=== PATIENT | male | born 1990 | race Caucasian/White ===

== ENCOUNTER 2016-10-26 15:56 | Emergency (ER) | payer OTHER ==
--- NOTE | 2016-10-26 16:49 | EDM.PDOC ---
[id number] Complaint: Abdominal Pain Stated Complaint: abd pain Time Seen by Provider: 10/26/16 16:39 Source of Information: Reports: Patient, Family, RN Notes Reviewed History Limitations: Reports: No Limitations - History of Present Illness INITIAL COMMENTS - FREE TEXT/NARRATIVE: 26-year-old gentleman presents emergency department day complaint of abdominal pain in the left upper quadrant, he states been ongoing for 24 hours does have any relationship with food in that the pain will get worse. Pain will radiate up into his chest, has had nausea and vomiting x1 no problems with urination no problems with bowel movements denies any trauma no history of abdominal surgeries takes no medications Left Upper Abdomen Pain Score (Numeric/FACES): 4 - Related Data Allergies Allergy/AdvReac Type Severity Reaction Status Date / Time No Known Allergies Allergy Verified 10/26/16 16:15 Past Medical History Other Respiratory History: pneumonia June 2016 Musculoskeletal History: Reports: Fracture Other Musculoskeletal History: right hand Neurological History: Reports: Concussion - Infectious Disease History Infectious Disease History: Reports: Chicken Pox Social & Family History - Family History Family Medical History: Noncontributory - Tobacco Use Smoking Status *Q: Never Smoker Years of Tobacco use: 1 Second Hand Smoke Exposure: Yes - Caffeine Use Caffeine Use: Reports: Soda - Alcohol Use Days Per Week of Alcohol Use: 0 - Recreational Drug Use Recreational Drug Use: No ED ROS GENERAL - Review of Systems Review Of Systems: See Below Constitutional: Reports: No Symptoms HEENT: Reports: No Symptoms Respiratory: Reports: No Symptoms Cardiovascular: Reports: No Symptoms GI/Abdominal: Reports: Abdominal Pain, Nausea, Vomiting. Denies: Constipation, Diarrhea : Reports: No Symptoms Musculoskeletal: Reports: No Symptoms Skin: Reports: No Symptoms Neurological: Reports: No Symptoms ED EXAM, GI/ABD - Physical Exam Exam: See Below Text/Narrative:: General: male, not in any distress, alert and oriented x3 HEENT: head is atraumatic normocephalic, eyes pupils equal round reactive to light, sclera clear no conjunctivitis appreciated. Ears tympanic membranes clear and puentes landmarks and light reflex are present bilaterally canals are clear. Nose no septal deviation, nares are clear, no blood present. Mouth mucosa is moist and pink no erythema or exudate noted in soft palate, tongue is midline uvula is midline, dentition is intact. Neck: Supple no thyromegaly no tracheal deviation. Nodes: Cervical nodes subclavicular nodes nontender no palpable lymphadenopathy noted. Lungs: clear to auscultation bilaterally with symmetrical respirations, no adventitious noise appreciated. CV: Regular rate and rhythm S1 and S2 appreciated no murmurs rubs or gallops noted. Abdomen: Soft, tender to palpation left upper quadrant, no palpable masses or organomegaly appreciated, no distention positive for guarding bowel sounds are present, . Neuro: Cranial nerves II through XII grossly intact Skin: Warm and dry, intact Extremities: No lower extremity edema appreciated, . Course - Vital Signs Last Recorded V/S: Last Vital Signs Temp 98.1 F 10/26/16 21:02 Pulse 58 L 10/26/16 21:02 Resp 16 10/26/16 21:02 BP 120/83 10/26/16 21:02 Pulse Ox 99 10/26/16 21:02 - Orders/Labs/Meds Orders: Active Orders 24 hr Category Date Time Status Peripheral IV Care [RC] . DIRECTED Care 10/26/16 18:39 Active Abdomen Pelvis w Cont [CT] Stat Exams 10/26/16 18:32 Taken Peripheral IV Insertion Adult [OM.PC] Urgent Oth 10/26/16 18:39 Ordered Labs: Laboratory Tests 10/26/16 10/26/16 10/26/16 Range/Units 16:55 16:55 18:11 WBC 12.0 H (4.5-11.0) K/uL RBC 5.27 (4.30-5.90) M/uL Hgb 15.5 H (12.0-15.0) g/dL Hct 45.9 (40.0-54.0) % MCV 87 (80-98) fL MCH 29 (27-31) pg MCHC 34 (32-36) % Plt Count 234 (150-400) K/uL Neut % (Auto) 70 H (36-66) % Lymph % (Auto) 16 L (24-44) % [place] % (Auto) 10 H (2-6) % Eos % (Auto) 2 (2-4) % Baso % (Auto) 1 (0-1) % Sodium 140 (140-148) mmol/L Potassium 4.0 (3.6-5.2) mmol/L Chloride 104 (100-108) mmol/L Carbon Dioxide 28 (21-32) mmol/L Anion Gap 8.2 (5.0-14.0) mmol/L BUN 16 (7-18) mg/dL Creatinine 1.0 (0.8-1.3) mg/dL Est Cr Clr Drug Dosing 132.43 mL/min Estimated GFR (MDRD) > 60 (>60) Glucose 99 (74-106) mg/dL Calcium 8.7 (8.5-10.1) mg/dL Total Bilirubin 0.4 (0.2-1.0) mg/dL AST 23 (15-37) U/L ALT 56 (12-78) U/L Alkaline Phosphatase 93 (46-116) U/L C-Reactive Protein 0.25 (0.0-0.3) mg/dL Total Protein 7.9 (6.4-8.2) g/dL Albumin 4.0 (3.4-5.0) g/dL Globulin 3.9 H (2.3-3.5) g/dL Albumin/Globulin Ratio 1.0 L (1.2-2.2) Lipase 238 (73-393) U/L Urine Color Yellow Urine Appearance Slightly cloudy Urine pH 6.0 (4.5-8.0) Ur Specific [place] 1.020 (1.008-1.030) Urine Protein Negative (NEGATIVE) mg/dL Urine Glucose (UA) Normal (NEGATIVE) mg/dL Urine Ketones Negative (NEGATIVE) mg/dL Urine Occult Blood Negative (NEGATIVE) Urine Nitrite Negative (NEGAITVE) Urine Bilirubin Negative (NEGATIVE) Urine Urobilinogen Normal (NORMAL) mg/dL Ur Leukocyte Esterase Negative (NEGATIVE) Urine RBC 0-5 (0-5) Urine WBC Not seen (0-5) Ur Epithelial Cells Not seen Amorphous Sediment Not seen Urine Bacteria Few Urine Mucus Numerous Meds: Medications Discontinued Medications Generic Name Dose Route Start Last Admin Trade Name Freq PRN Reason Stop Dose Admin Sodium Chloride 80 mls @ 3.5 mls/sec 10/26/16 18:45 10/26/16 18:50 Normal Saline IV 3.5 mls/sec ASDIRECTED MARIA GUADALUPE Administration Sodium Chloride 1,000 mls @ 500 mls/hr 10/26/16 18:45 10/26/16 19:01 Normal Saline IV 500 mls/hr ASDIRECTED MARIA GUADALUPE Administration Iopamidol 142 ml 10/26/16 18:35 10/26/16 18:51 Isovue-300 (61%) IV 10/27/16 18:36 142 ml . DIRECTED PRN Administration RADIOLOGY EXAM Sodium Chloride 10 ml 10/26/16 18:35 10/26/16 18:49 Saline Flush FLUSH 10/26/16 18:36 10 ml ONETIME ONE Administration Sodium Chloride 10 ml 10/26/16 18:39 Saline Flush FLUSH ASDIRECTED PRN Keep Vein Open Departure - Departure Disposition: Home, Self-Care 01 Clinical Impression: Gastritis Qualifiers: Gastritis type: unspecified gastritis Chronicity: acute Gastritis bleeding: without bleeding Qualified Code(s): K29.00 - Acute gastritis without bleeding Abdominal pain Qualifiers: Abdominal location: left upper quadrant Qualified Code(s): R10.12 - Left upper quadrant pain - Discharge Information Instructions: Gastritis, Adult, [id number] Referrals: PCP,None [Primary Care Provider] - Forms: ED Department Discharge Care Plan Goals: Clear liquids initially and advance diet as tolerated. Antacids may help. Return if worsening such as fever or increased pain, or consider recheck in 4-5 days if not improving satisfactorily. <Dain Koroma - Last Filed: 10/27/16 00:55> Course - Re-Assessments/Exams Free Text/Narrative Re-Assessment/Exam: 10/26/16 20:32 Patient was seen and evaluated by Officer. Care was turned over pending a CT scan of the abdomen. The results show some local mucosal thickening of the stomach but no other abnormal findings. The patient has only had symptoms for one day so ulcer is unlikely. I asked him to stick with clear liquids and use antacids for the next few days and recheck if not improving as he may need to get an upper GI. He can return sooner if worsening or concerns. Departure - Departure Time of Disposition: 21:04 Condition: good
[2016-10-26] MEDS ORDERED: Sodium Chloride 0.9% 10 ML Syringe FLUSH ONE (18:35)
[2016-10-26] MEDS ORDERED: Iopamidol 612 MG/ML 150 ML Bottle IV PRN (18:35)
[2016-10-26] MEDS ORDERED: Sodium Chloride 0.9% 10 ML Syringe FLUSH PRN (18:39)
[2016-10-26] MEDS ORDERED: Sodium Chloride 0.9% 1,000 ML IV SCH (18:45)
[2016-10-26] MEDS ORDERED: Sodium Chloride 0.9% 80 ML IV SCH (18:45)
[2016-10-26 21:04] VITALS: BP 120/83
== END 2016-10-26 21:04 | disposition home or self-care (01) ==
LOC: JP.ED 15:56
DX: K29.00 Acute gastritis without bleeding (principal); R10.12 Left upper quadrant pain; Z77.22 Contact with and (suspected) exposure to environmental tobacco smoke (acute) (chronic)
CPT/HCPCS: 36415; 74177; 80053; 81001; 83690; 85025; 86140; 96360; 96361; 99284; J7030; J7040; J7050

== ENCOUNTER 2016-10-31 06:34 | Day surgery (SDC) | payer OTHER ==
[2016-10-31] MEDS ORDERED: Dextrose 5%-Lactated Ringers 1,000 ML IV SCH (07:00)
[2016-10-31] MEDS ORDERED: Glycopyrrolate 0.2 MG/ML 2 ML SYRINGE IVPUSH ONE (07:00)
[2016-10-31] MEDS ORDERED: Propofol 200 MG/20 ML SDV ONE (07:10)
[2016-10-31] MEDS ORDERED: fentaNYL 100 MCG/2 ML SDV ONE (07:10)
[2016-10-31] MEDS ORDERED: Midazolam 1 MG/ML 2 ML SDV ONE (07:11)
[2016-10-31] MEDS ORDERED: Pantoprazole 40 MG Vial IVPUSH ONE (08:15)
[2016-10-31 08:45] VITALS: BP 122/77
--- NOTE | 2016-11-04 15:29 | OR ---
PREOPERATIVE DIAGNOSIS: Epigastric pain with thickened gastric antrum on CT scan. POSTOPERATIVE DIAGNOSIS: Marked diffuse gastritis. PROCEDURE: Esophagogastroduodenoscopy with: 1. Biopsies of antrum for CLOtest. 2. Biopsies of body and antrum for histologic evaluation. ANESTHESIA: IV sedation. INDICATION FOR PROCEDURE: This is a 26-year-old male presenting with some ongoing epigastric pain. The patient had been intermittently been taking some Pepto-Bismol and had just recently started on omeprazole per Oz Gramajo PA-C. TITLE OF THE PROCEDURE: Upper GI endoscopy with biopsies as indicated. Potential risks including bleeding and perforation were discussed, and the patient wishes to proceed. DETAILS OF PROCEDURE: The patient was taken to the operating room and placed in a left lateral decubitus position. IV sedation was administered, after which the upper GI endoscope was passed orally through the length of esophagus and into the stomach with retroflexion view of the fundus and thereafter through the pyloric channel into the duodenum junction third and fourth portions. Findings included normal hypopharynx, larynx, upper esophageal sphincter, and esophageal body at the EG junction. No significant inflammation or hiatal hernia were noted and within the stomach, there was a quite marked diffuse gastritis. This was most intense within the distal body and antrum. It was not associated with significant bile retention or retention of fluid, but it was a fairly striking diffuse gastritis. There were a few scattered erosions in the antrum, which were presently recovered with fibrinous exudate. The pyloric channel and duodenum were otherwise unremarkable. At this point, biopsies were obtained from the antrum and sent for CLOtest for H. pylori, given the somewhat unusual presentation of this intense diffuse gastritis, inguinal patient. Biopsies were then also obtained from the body and antrum of the stomach and sent for histologic evaluation. No bleeding from the biopsy sites were seen and the procedure then concluded. The plan will be to have the patient continue the omeprazole and Pepto-Bismol p.r.n. basis. The omeprazole to be scheduled and was also given, Protonix 40 mg IV in the recovery room to help initiate augment the initiation of the PPI treatment. The patient decided to see Oz Gramajo PA-C at [facility] in 7 to 10 days. Chato Pickering MD /[id number]
== END 2016-10-31 09:10 | disposition home or self-care (01) ==
LOC: JP.SDS 06:34
PROVIDERS: ATTEND Surgery
DX: K29.50 Unspecified chronic gastritis without bleeding (principal); K25.9 Gastric ulcer, unspecified as acute or chronic, without hemorrhage or perforation; K21.9 Gastro-esophageal reflux disease without esophagitis; Z79.899 Other long term (current) drug therapy
CPT/HCPCS: 43239; 87081; C9113; J2250; J2704; J3010; J7042; 88305; 88342

== ENCOUNTER 2016-12-25 06:32 | Day surgery (SDC) | payer OTHER ==
[2016-12-25] MEDS ORDERED: Lactated Ringers 1,000 ML IV SCH (07:00)
[2016-12-25] MEDS ORDERED: fentaNYL 100 MCG/2 ML SDV ONE (07:36)
[2016-12-25] MEDS ORDERED: Propofol 200 MG/20 ML SDV ONE (07:36)
[2016-12-25] MEDS ORDERED: Midazolam 1 MG/ML 2 ML SDV ONE (07:36)
[2016-12-25] MEDS ORDERED: Ampicillin 2 GM in Sodium Chloride 0.9% 100 ML IV ONE (07:45)
[2016-12-25 08:57] VITALS: BP 112/59
--- NOTE | 2016-12-25 09:05 | OR ---
DATE OF PROCEDURE: 12/25/2016 PREOPERATIVE DIAGNOSIS: Blood in stool. POSTOPERATIVE DIAGNOSIS: Blood in stool, etiology unknown. PROCEDURE: Colonoscopy to the cecum. ANESTHESIA: IV anesthesia with monitored anesthesia care. INDICATION: This 26-year-old white male was referred for a colonoscopy because of blood in his stool. He does have a history of Helicobacter pylori and has been treated for this. I counseled him for a colonoscopy with possible biopsy and/or polypectomy including risks and alternatives, and he gave his informed consent to proceed. DESCRIPTION OF PROCEDURE: The patient was placed in the left lateral decubitus position. IV anesthesia was administered by the Anesthesia Service. Time-out was held. A rectal exam was performed, which was unremarkable. A flexible video Olympus colonoscope was introduced through his anus, up his rectum, and out his colon all the way to the cecum. Once the cecum was reached, the scope was slowly withdrawn examining the mucosa throughout. No mucosal abnormalities were noted. No old or new blood was seen anywhere in the lower gastrointestinal tract. The scope was retroflexed in the rectum with the distal rectum appearing unremarkable. The scope was straightened and removed. He tolerated the procedure well. Jaylen Montana MD /[id number] MOUNA
== END 2016-12-25 09:22 | disposition home or self-care (01) ==
LOC: JP.SDS 06:32
PROVIDERS: ATTEND Surgery
DX: K92.1 Melena (principal)
CPT/HCPCS: 45378; J0290; J2250; J2704; J3010; J7030; J7120

== ENCOUNTER 2019-06-09 21:56 | Emergency (ER) | payer OTHER ==
[2019-06-09 22:57] VITALS: BP 144/76; PULSE 54
--- NOTE | 2019-06-09 23:49 | EDM.PDOC ---
ED HPI GENERAL MEDICAL PROBLEM - General Chief Complaint: Abdominal Pain Stated Complaint: ACID REFLUX,ABD PAIN Time Seen by Provider: 06/09/19 23:30 Source of Information: Reports: Patient, Family History Limitations: Reports: No Limitations - History of Present Illness INITIAL COMMENTS - FREE TEXT/NARRATIVE: 28-year-old male with a history of gastritis, has had increased symptoms over the past 2 or 3 days. He can feel the burning going up substernally. He has not taken any antacids, he is not on any preventive medications. No fevers or chills no diarrhea. Onset: Gradual Duration: Day(s): (3 days) Location: Reports: Abdomen (Upper abdomen) Associated Symptoms: Reports: No Other Symptoms - Related Data Allergies Allergy/AdvReac Type Severity Reaction Status Date / Time No Known Allergies Allergy Verified 10/26/16 16:15 Home Meds: Home Meds NK [No Known Home Meds] 06/09/19 [History] Past Medical History - Past Health History Medical/Surgical History: Denies Medical/Surgical History Respiratory History: Reports: Other (See Below) Other Respiratory History: pneumonia June 2016 Gastrointestinal History: Reports: Helicobacter Pylori Musculoskeletal History: Reports: Fracture Other Musculoskeletal History: right hand Neurological History: Reports: Concussion - Infectious Disease History Infectious Disease History: Reports: Chicken Pox, Helicobacter Pylori - Past Surgical History Respiratory Surgical History: Reports: None GI Surgical History: Reports: Colonoscopy, EGD Other GI Surgeries/Procedures: gastritis Neurological Surgical History: Reports: None Musculoskeletal Surgical History: Reports: None Dermatological Surgical History: Reports: None Social & Family History - Family History Family Medical History: Noncontributory - Tobacco Use Smoking Status *Q: Never Smoker - Caffeine Use Caffeine Use: Reports: Energy Drinks - Recreational Drug Use Recreational Drug Use: No ED ROS GENERAL - Review of Systems Review Of Systems: See Below Constitutional: Denies: Fever, Chills, Malaise Respiratory: Denies: Shortness of Breath Cardiovascular: Denies: Chest Pain GI/Abdominal: Reports: Abdominal Pain. Denies: Nausea, Vomiting ED EXAM, GI/ABD - Physical Exam Exam: See Below Exam Limited By: No Limitations General Appearance: Alert, No Apparent Distress Eyes: Bilateral: Normal Appearance Respiratory/Chest: No Respiratory Distress, Lungs Clear GI/Abdominal Exam: Soft, Other (Slight tenderness in the epigastric area but no guarding or rebound) Course - Vital Signs Last Recorded V/S: Last Vital Signs Temp 97.5 F 06/09/19 23:05 Pulse 54 L 06/09/19 23:05 Resp 16 06/09/19 23:05 BP 144/76 H 06/09/19 23:05 Pulse Ox 100 06/09/19 23:05 - Re-Assessments/Exams Free Text/Narrative Re-Assessment/Exam: 06/09/19 23:48 Patient has straightforward gastritis and needs to get back on preventative medicine such as omeprazole. I recommended 40 mg daily for 1 week, then 20 mg daily for an additional 2 weeks. Recheck if not improving satisfactorily. Departure - Departure Time of Disposition: 23:54 Disposition: Home, Self-Care 01 Clinical Impression: Gastritis Qualifiers: Gastritis type: unspecified gastritis Chronicity: acute Gastritis bleeding: without bleeding Qualified Code(s): K29.00 - Acute gastritis without bleeding - Discharge Information Instructions: Gastritis, Adult Referrals: PCP,None [Primary Care Provider] - Forms: ED Department Discharge Care Plan Goals: Take 40 mg of omeprazole daily for 1 week, then 20 mg daily for an additional 2 to 3 weeks. Recheck in 7 to 10 days if not improving satisfactorily. Return sooner if worsening despite treatment. Sepsis Event Note - Evaluation Sepsis Screening Result: No Definite Risk - Focused Exam Vital Signs: Vital Signs Temp Pulse Resp BP Pulse Ox 06/09/19 23:05 97.5 F 54 L 16 144/76 H 100 06/09/19 22:54 97.5 F 54 L 16 144/76 H 100 Date Exam was Performed: 06/10/19 Time Exam was Performed: 04:08
== END 2019-06-09 23:54 | disposition home or self-care (01) ==
LOC: JP.ED 21:56
DX: K29.00 Acute gastritis without bleeding (principal)
CPT/HCPCS: 99283

== ENCOUNTER 2019-12-29 21:24 | Emergency (ER) | payer OTHER ==
[2019-12-29 21:39] VITALS: BP 124/75; PULSE 72
--- NOTE | 2019-12-29 22:20 | EDM.PDOC ---
ED HPI GENERAL MEDICAL PROBLEM - General Chief Complaint: Lower Extremity Injury/Pain Stated Complaint: RT ANKLE PAIN Time Seen by Provider: 12/29/19 21:50 Source of Information: Reports: Patient History Limitations: Reports: No Limitations - History of Present Illness INITIAL COMMENTS - FREE TEXT/NARRATIVE: 29-year-old male injured his right ankle running the bases playing softball. He has pain with ambulation, swelling over the lateral malleolus and tenderness and swelling on the top of the foot. No significant bruising. No other injury. Onset: Sudden Duration: Hour(s): (1 hour ago) Location: Reports: Lower Extremity, Right Worsens with: Reports: Other (Weightbearing), Movement Associated Symptoms: Reports: No Other Symptoms right ankle Pain Score (Numeric/FACES): 4 - Related Data Allergies Allergy/AdvReac Type Severity Reaction Status Date / Time No Known Allergies Allergy Verified 12/29/19 21:46 Home Meds: Home Meds NK [No Known Home Meds] 06/09/19 [History] Past Medical History - Past Health History Medical/Surgical History: Denies Medical/Surgical History HEENT History: Reports: Impaired Vision, Other (See Below) Other HEENT History: glasses Respiratory History: Reports: Other (See Below) Other Respiratory History: pneumonia June 2016 Gastrointestinal History: Reports: Gastritis, Helicobacter Pylori Musculoskeletal History: Reports: Fracture Other Musculoskeletal History: right hand Neurological History: Reports: Concussion - Infectious Disease History Infectious Disease History: Reports: Chicken Pox - Past Surgical History HEENT Surgical History: Reports: None Respiratory Surgical History: Reports: None GI Surgical History: Reports: Colonoscopy, EGD Other GI Surgeries/Procedures: gastritis Neurological Surgical History: Reports: None Musculoskeletal Surgical History: Reports: Other (See Below) Other Musculoskeletal Surgeries/Procedures:: right hand surgical repair with ortho implants Dermatological Surgical History: Reports: None Social & Family History - Family History Family Medical History: Noncontributory - Tobacco Use Smoking Status *Q: Never Smoker - Caffeine Use Caffeine Use: Reports: Energy Drinks - Recreational Drug Use Recreational Drug Use: No Review of Systems - Review of Systems Review Of Systems: See Below Constitutional: Denies: Fever Respiratory: Reports: No Symptoms Cardiovascular: Reports: No Symptoms Genitourinary: Reports: No Symptoms Skin: Denies: Bruising, Erythema Neurological: Denies: Paresthesia (No distal numbness to the foot) Psychiatric: Reports: No Symptoms ED EXAM, GENERAL - Physical Exam Exam: See Below Exam Limited By: No Limitations General Appearance: Alert, No Apparent Distress Head: Atraumatic Respiratory/Chest: No Respiratory Distress Extremities: Other (Exam is otherwise limited to the lower extremities. He has edema and swelling around the lateral malleolus on the right compared to the left. He is very tender to palpation over the distal fibula and over the proximal aspect of the lateral metatarsals.) Neurological: Alert, Oriented Course - Vital Signs Last Recorded V/S: Last Vital Signs Temp 96.8 F L 12/29/19 21:41 Pulse 72 12/29/19 21:41 Resp 16 12/29/19 21:41 BP 124/75 12/29/19 21:41 Pulse Ox 95 12/29/19 21:41 - Orders/Labs/Meds Orders: Active Orders 24 hr Category Date Time Status Ankle Min 3V Rt [CR] Stat Exams 12/29/19 21:55 Taken Foot 2V Rt [CR] Stat Exams 12/29/19 21:55 Taken DME for Discharge [COMM] Stat Oth 12/29/19 22:18 Ordered - Re-Assessments/Exams Free Text/Narrative Re-Assessment/Exam: 12/29/19 22:17 X-ray of the right foot and right ankle were obtained which were negative for fracture. A 4 inch Nasim wrap was applied and the patient was fitted with crutches. He should increase activity as tolerated. Departure - Departure Time of Disposition: 22:22 Disposition: Home, Self-Care 01 Clinical Impression: Sprain of right ankle Qualifiers: Encounter type: initial encounter Involved ligament of ankle: anterior talofibular ligament Qualified Code(s): S93.491A - Sprain of other ligament of right ankle, initial encounter - Discharge Information Instructions: Crutch Use, Adult, [id number], Ankle Sprain Referrals: PCP,None [Primary Care Provider] - Forms: ED Department Discharge Care Plan Goals: Wrap ankle for support and to reduce swelling, elevate when able and ice for 2 days to be beneficial. Use crutches initially to assist with weightbearing and ambulation but increase activity as tolerated. Recheck next week if not improving satisfactorily. Sepsis Event Note (ED) - Evaluation Sepsis Screening Result: No Definite Risk - Focused Exam Vital Signs: Vital Signs Temp Pulse Resp BP Pulse Ox 12/29/19 21:41 96.8 F L 72 16 124/75 95 12/29/19 21:38 96.8 F L 72 16 124/75 95 - My Orders Last 24 Hours: My Active Orders 12/29/19 21:55 Ankle Min 3V Rt [CR] Stat Foot 2V Rt [CR] Stat 12/29/19 22:18 DME for Discharge [COMM] Stat - Assessment/Plan Last 24 Hours: My Active Orders 12/29/19 21:55 Ankle Min 3V Rt [CR] Stat Foot 2V Rt [CR] Stat 12/29/19 22:18 DME for Discharge [COMM] Stat
--- NOTE | 2019-12-30 08:57 | CR ---
Ankle Min 3V Rt, Foot 2V Rt CLINICAL HISTORY: Injury FINDINGS: There is soft tissue swelling. There is no fracture or dislocation. Ankle mortise is anatomic. Articular surfaces are smooth. IMPRESSION: Soft tissue swelling No fracture FOOT RIGHT 3 views CLINICAL HISTORY:Injury FINDINGS:No fractures identified. There is no osseous lesion or dislocation. Impression: Negative
== END 2019-12-29 22:32 | disposition home or self-care (01) ==
LOC: JP.ED 21:24
DX: S93.491A Sprain of other ligament of right ankle, initial encounter (principal); X50.9XXA Other and unspecified overexertion or strenuous movements or postures, initial encounter; Y93.64 Activity, baseball
CPT/HCPCS: 73610-26-RT; 73610-RT; 73620-26-RT; 73620-RT; 99283